=== PATIENT | male | born 2000 | race Caucasian/White ===

== ENCOUNTER 2018-04-03 12:46 | Emergency (ER) | payer MEDICAID ==
[~2018-04-03] VITALS: Ht 167.6 cm; Wt 97.5 kg
[2018-04-03 12:58] VITALS: Ht 167.6 cm; Wt 97.5 kg
[2018-04-03 13:51] VITALS: BP 128/82
== END 2018-04-03 13:51 | disposition home or self-care (01) ==
LOC: ED 12:46
DX: J06.9 Acute upper respiratory infection, unspecified (principal)
CPT/HCPCS: J7613; J7644

== ENCOUNTER 2018-10-06 00:36 | Emergency (ER) | payer MEDICAID ==
[~2018-10-06] VITALS: Ht 167.6 cm; Wt 99.3 kg
[2018-10-06 00:41] VITALS: Ht 167.6 cm; Wt 99.3 kg
[2018-10-06 03:57] VITALS: BP 131/80
== END 2018-10-06 03:57 | disposition home or self-care (01) ==
LOC: ED 00:36
DX: J20.9 Acute bronchitis, unspecified (principal)
CPT/HCPCS: J7512; Q0092

== ENCOUNTER 2019-06-15 07:17 | Emergency (ER) | payer MEDICAID ==
[~2019-06-15] VITALS: Ht 167.6 cm; Wt 95.7 kg
[2019-06-15 07:37] VITALS: BP 119/87; Ht 167.6 cm; Wt 95.7 kg
== END 2019-06-15 08:31 | disposition home or self-care (01) ==
LOC: ED 07:17
DX: J18.0 Bronchopneumonia, unspecified organism (principal)
CPT/HCPCS: Q0092

== ENCOUNTER 2019-09-27 20:15 | Emergency (ER) | payer MEDICAID ==
[~2019-09-27] VITALS: Ht 167.6 cm; Wt 93.2 kg
[2019-09-27 20:25] VITALS: Ht 167.6 cm; Wt 93.2 kg
[2019-09-27 21:38] VITALS: BP 124/74
== END 2019-09-27 21:38 | disposition home or self-care (01) ==
LOC: ED 20:15
DX: J20.9 Acute bronchitis, unspecified (principal); F17.200 Nicotine dependence, unspecified, uncomplicated
CPT/HCPCS: 99406

== ENCOUNTER 2020-01-29 21:13 | Emergency (ER) | payer MEDICAID ==
[~2020-01-29] VITALS: Ht 167.6 cm; Wt 90.7 kg
[2020-01-29 21:30] VITALS: Ht 167.6 cm; Wt 90.7 kg
[2020-01-29 22:49] VITALS: BP 147/92
== END 2020-01-29 22:49 | disposition home or self-care (01) ==
LOC: ED 21:13
DX: G51.0 Bell's palsy (principal)
CPT/HCPCS: J7512

== ENCOUNTER 2020-03-27 12:48 | Emergency (ER) | payer MEDICAID ==
[~2020-03-27] VITALS: Ht 167.6 cm; Wt 93.4 kg
[2020-03-27 12:52] VITALS: BP 126/81; Ht 167.6 cm; Wt 93.4 kg
== END 2020-03-27 14:37 | disposition home or self-care (01) ==
LOC: ED 12:48
DX: G51.0 Bell's palsy (principal)

== ENCOUNTER 2020-05-05 10:31 | Emergency (ER) | payer MEDICAID ==
[~2020-05-05] VITALS: Ht 167.6 cm; Wt 90.7 kg
[2020-05-05 10:37] VITALS: Ht 167.6 cm; Wt 90.7 kg
[2020-05-05 11:27] VITALS: BP 118/97
== END 2020-05-05 11:38 | disposition home or self-care (01) ==
LOC: ED 10:31
DX: K52.9 Noninfective gastroenteritis and colitis, unspecified (principal); Z20.828 Contact with and (suspected) exposure to other viral communicable diseases
CPT/HCPCS: Q0162; U0003-CS

== ENCOUNTER 2020-06-24 15:09 | Emergency (ER) | payer MEDICAID ==
[~2020-06-24] VITALS: Ht 165.1 cm; Wt 104.3 kg
[2020-06-24 15:15] VITALS: Ht 165.1 cm; Wt 104.3 kg
[2020-06-24 16:10] LABS: BASOPHIL % 0.4 % (0-2); PLATELET COUNT 234 x10^3mcL (130-400)
[2020-06-24 16:53] LABS: CALCIUM 8.8 mg/dL (8.5-10.1); CARBON DIOXIDE 31.2 mmol/L (21-32); CHLORIDE SERUM 105 mmol/L (98-107); CREATININE SERUM 0.7 mg/dL (0.7-1.3); GFR1 > 60 mL/min; GLUCOSE SERUM 100 mg/dL (74-106); POTASSIUM SERUM 3.6 mmol/L (3.5-5.1); SODIUM SERUM 143 mmol/L (136-145)
[2020-06-24 16:58] LABS: ALBUMIN 3.8 g/dL (3.4-5.0); ALKALINE PHOSPHATASE 75 U/L (46-116); ALT/SGPT 30 U/L (16-63); AST/SGOT 18 U/L (15-37); BILIRUBIN TOTAL 0.3 mg/dL (0.20-1.00); LIPASE 68 IU/L (73-393); TOTAL PROTEIN, SERUM 6.9 g/dL (6.4-8.2)
[2020-06-24 17:15] VITALS: BP 119/83
== END 2020-06-24 17:15 | disposition home or self-care (01) ==
LOC: ED 15:09
PROVIDERS: Emergency Medicine
DX: R10.9 Unspecified abdominal pain (principal); R51 Headache; M79.10 Myalgia, unspecified site; R61 Generalized hyperhidrosis

== ENCOUNTER 2020-08-07 19:54 | Emergency (ER) | payer MEDICAID ==
[~2020-08-07] VITALS: Ht 167.6 cm; Wt 92.5 kg
[2020-08-07 20:14] VITALS: Ht 167.6 cm; Wt 92.5 kg
[2020-08-07 20:39] VITALS: BP 155/80
== END 2020-08-07 20:39 | disposition home or self-care (01) ==
LOC: ED 19:54
DX: M26.69 Other specified disorders of temporomandibular joint (principal); J32.9 Chronic sinusitis, unspecified; R51 Headache

== ENCOUNTER 2020-10-15 23:44 | Emergency (ER) | payer MEDICAID ==
[~2020-10-15] VITALS: Ht 167.6 cm; Wt 93.7 kg
[2020-10-16 00:10] VITALS: Ht 167.6 cm; Wt 93.7 kg
[2020-10-16 02:21] VITALS: BP 156/93
== END 2020-10-16 02:21 | disposition home or self-care (01) ==
LOC: ED 23:44
DX: S46.911A Strain of unspecified muscle, fascia and tendon at shoulder and upper arm level, right arm, initial encounter (principal); M54.2 Cervicalgia; G51.0 Bell's palsy; X58.XXXA Exposure to other specified factors, initial encounter; Y93.89 Activity, other specified; Y92.89 Other specified places as the place of occurrence of the external cause; Y99.8 Other external cause status